=== PATIENT | male | born 1995 ===

== ENCOUNTER 2016-04-01 14:28 | Inpatient (IN) | payer OTHER ==
[2016-04-01] VITALS (8 sets, daily range): BP systolic 107–132; BP diastolic 55–74; PULSE 54–73; TEMP 98–98.3
[2016-04-02] VITALS (8 sets, daily range): BP systolic 95–111; BP diastolic 49–63; PULSE 56–76; TEMP 97.7–98.6
[2016-04-02 07:25] LABS: BASO % 0.4 % (0.0-2.0); EOS # 0.5 (0.0-0.7); EOS % 7.6 % (0-4.0); GRAN # 3.3 (1.4-6.5); GRAN % 45.8 % (42.2-75.2); LYMPH # 2.8 (1.2-3.4); LYMPH % 38.6 % (20.0-51.0); MEAN CELL VOLUME 96 fl (80.0-100.0); MEAN CORPUSCULAR HGB CONC 33 g/dl (33.0-37.0); MEAN PLATELET VOLUME 9.5 fl (7.4-10.4); MONO # 0.5 (0.1-0.6); MONO % 7.3 % (1.7-9.3); PLATELET COUNT 234 K/mm3 (130-400); RED BLOOD COUNT 3.06 M/mm3 (4.20-5.60); WHITE BLOOD COUNT 7.1 K/mm3 (4.8-10.8)
[2016-04-02 07:28] LABS: HEMATOCRIT 29.4 % (42.0-52.0); HEMOGLOBIN 9.6 g/dl (13.5-18.0); MEAN CORPUSCULAR HEMOGLOBIN 31 pg (27.0-31.0)
[2016-04-02 07:34] LABS: ADJUSTED CALCIUM 9.1 mg/dL (8.4-10.2); ALBUMIN 2.9 gm/dL (3.5-5.0); BILIRUBIN,TOTAL 0.8 mg/dL (0.0-1.0); CALCIUM 8.2 mg/dL (8.4-10.2); CREATININE, serum 0.78 mg/dL (0.66-1.25); POTASSIUM 4.2 mmol/L (3.4-5.0); TOTAL PROTEIN 5.6 gm/dL (6.4-8.2)
[2016-04-02 12:36] LABS: HEMATOCRIT 31.2 % (42.0-52.0); HEMOGLOBIN 10.2 g/dl (13.5-18.0)
[2016-04-02] MEDS ORDERED: PROTONIX 40MG T40 MG PO ×2 (16:18→18:06)
== END 2016-04-02 19:27 | disposition home or self-care (01) | DRG 370 ==
LOC: SURG 14:28
PROVIDERS: Internal Medicine; Internal Medicine Gastroenterology
PROC: 0W3P8ZZ Control Bleeding in Gastrointestinal Tract, Via Natural or Artificial Opening Endoscopic (ICD-10-PCS; principal; 2016-04-01 16:30)
DX: K22.6 Gastro-esophageal laceration-hemorrhage syndrome (principal); F17.210 Nicotine dependence, cigarettes, uncomplicated
CPT/HCPCS: 99223-AI; 99239; C9113; J2250; J3010